=== PATIENT | male | born 1955 | race Caucasian/White ===

== ENCOUNTER 2023-08-21 04:22 | Day surgery (SDC) | payer OTHER ==
[2023-08-16 14:49] VITALS: BMI 23.2
[2023-08-21 11:10] VITALS: RESP 20
[2023-08-21] MEDS ORDERED: MIDAZOLAM HCL 2 MG/2 ML SINGLE DOSE VIAL ONE (12:07)
[2023-08-21 13:01] VITALS: PULSE 63
[2023-08-21 14:46] VITALS: BP 112/68; TEMP 97.8
== END 2023-08-21 14:45 | disposition home or self-care (01) ==
LOC: JASU-SURG 04:22
PROVIDERS: ATTEND Urology
PROC: 0TF3XZZ Fragmentation in Right Kidney Pelvis, External Approach (ICD-10-PCS; principal; 2023-08-21 12:00)
DX: N20.0 Calculus of kidney (principal)